=== PATIENT | female | born 1960 | race Caucasian/White ===

== ENCOUNTER 2016-10-22 10:25 | Emergency (ER) | payer OTHER ==
[~2016-10-22] VITALS: Ht 172.7 cm; Wt 78.7 kg
[~2016-10-22 10:25] MED LIST: ALEVE220 MG PO; ASPIRIN EC325 MG PO; ASPIRIN325 MG PO; COREG12.5 M1 PO; COREG25 M1 PO; COREG6.25 M1 PO; Coreg PO; DIGOXIN250 MCG PO; Ecotrin PO; LASIX40 MG PO; LISINOPRIL10 MG PO; LISINOPRIL5 MG PO; Levothroid,Synthroid PO; MULTIVITAMIN1 EAC2 PO; SYNTHROID150 MCG PO; Theragran PO
[2016-10-22 11:03] LABS: BASOPHIL COUNT 0.1 K/uL (0-0.1); EOSINOPHIL (%) 0.9 % (0-5); EOSINOPHIL COUNT 0.1 K/uL (0-0.3); HEMATOCRIT 28.6 % (36.0-46.0); IMMATURE GRANULOCYTE (%) 0.2 % (0.0-0.7); IMMATURE GRANULOCYTE COUNT 0.2 K/uL; LYMPHOCYTE COUNT 0.9 K/uL (1.0-2.8); MCH 28.4 PG (29.0-34.0); MCHC 32.5 G/DL (30.0-36.0); MCV 87.5 FL (83-99); MONOCYTE (%) 14.4 % (3-12); MONOCYTE COUNT 1.6 K/uL (0-0.8); NEUTROPHIL (%) 76.1 % (45-76); NEUTROPHIL COUNT 8.4 K/uL (1.8-6.4); PLATELET COUNT 369 K/uL (156-360); RBC DIS.WIDTH-CV 15.5 % (11.8-14.6); RBC DIS.WIDTH-SD 48.2 % (39-53); RED BLOOD COUNT 3.27 M/uL (3.80-5.20); WHITE BLOOD COUNT 11.1 K/uL (4.1-10.2)
[2016-10-22 11:11] LABS: CHLORIDE 102 mEq/L (99-109); POTASSIUM 4.5 mEq/L (3.7-5.4); SODIUM 138 mEq/L (136-147)
[2016-10-22 11:13] LABS: GLUCOSE 108 mg/dL (70-99)
[2016-10-22 11:15] LABS: ANION GAP 9 MEQ/L (2-14)
[2016-10-22 11:17] LABS: GFR ESTIMATE (CALCULATED) > 59 mL/min/
[2016-10-22 11:18] LABS: UREA NITROGEN (BUN) 36 mg/dL (9-23)
[2016-10-22 11:33] LABS: INTER. NORMALIZED RATIO 4.4; PROTHROMBIN TIME 47.1 (9.2-11.2)
[2016-10-22 14:27] VITALS: BP 92/61
== END 2016-10-22 15:14 | disposition home or self-care (01) ==
LOC: EME 10:25
PROVIDERS: Physician Assistant
PROC: 2Y41X5Z Packing of Nasal Region using Packing Material (ICD-10-PCS; principal; 2016-10-22)
DX: R04.0 Epistaxis (principal); Z79.01 Long term (current) use of anticoagulants
CPT/HCPCS: 80048; 85025; 85610; 99281; 99284

== ENCOUNTER 2017-02-27 16:36 | Inpatient (IN) | payer OTHER ==
[~2017-02-27] VITALS: Ht 172.7 cm; Wt 75.0 kg
[2017-02-27 17:20] LABS: HEMATOCRIT 44.3 % (36.0-46.0); MCH 27.8 PG (29.0-34.0); MCHC 31.8 G/DL (30.0-36.0); MCV 87.4 FL (83-99); RBC DIS.WIDTH-CV 21.1 % (11.8-14.6); RBC DIS.WIDTH-SD 66.7 % (39-53); RED BLOOD COUNT 5.07 M/uL (3.80-5.20); WHITE BLOOD COUNT 10.4 K/uL (4.1-10.2)
[2017-02-27 17:42] LABS: CHLORIDE 100 mEq/L (99-109); POTASSIUM 4.9 mEq/L (3.7-5.4); SODIUM 141 mEq/L (136-147)
[2017-02-27 17:44] LABS: GLUCOSE 84 mg/dL (70-99)
[2017-02-27 17:45] LABS: ANION GAP 14 MEQ/L (2-14)
[2017-02-27 17:46] LABS: TOTAL BILIRUBIN 0.7 mg/dL (0.0-1.0)
[2017-02-27 17:47] LABS: ALKALINE PHOSPHATASE 321 IU/L (3-129)
[2017-02-27 17:48] LABS: GFR ESTIMATE (CALCULATED) 55 mL/min/
[2017-02-27 17:49] LABS: UREA NITROGEN (BUN) 31 mg/dL (9-23)
[2017-02-27 17:51] LABS: LIPASE 15 U/L (1.0-51.0)
[2017-02-27 18:30] LABS: MEAN PLAT.VOLUME 11.2 uM^3 (9.5-12.4); PLATELET COUNT 384 K/uL (156-360)
[2017-02-27 18:31] LABS: PLAT.SUFFICIENCY ADEQUATE
[2017-02-27 19:17] LABS: ADD MIUA? YES; BILIRUBIN NEGATIVE; BLOOD NEGATIVE; COLOR YELLOW ((YELLOW)); GLUCOSE (STRIP) NEGATIVE; KETONES 20; LEUKOCYTES NEGATIVE; NITRITE NEGATIVE; PROTEIN (STRIP) NEGATIVE; SPECIFIC GRAVITY 1.015 (1.000-1.030); UROBILINOGEN 0.2 MG/DL (0.2-1.0)
[2017-02-27 19:42] LABS: BACTERIA NONE SEEN /HPF; EPITHELIAL CELLS RARE /HPF; HYALINE CASTS 0-5 /LPF; MUCUS TRACE /LPF; RED BLOOD CELLS 0-5 /HPF (0-5); UCUL ADDED? NO; WHITE BLOOD CELLS 0-5 /HPF (0-5)
[2017-02-27] MEDS ORDERED: DIGOXIN125 MCG PO (20:54)
[2017-02-27] MEDS ORDERED: FUROSEMIDE40 MG PO (20:55)
[2017-02-27] MEDS ORDERED: SYNTHROID150 MCG PO (20:55)
[2017-02-27] MEDS ORDERED: LISINOPRIL5 MG PO (20:56)
[2017-02-27] MEDS ORDERED: VITAMIN D31000 UNI2 PO (20:56)
[2017-02-27] MEDS ORDERED: IRON325 M1 PO (20:56)
[2017-02-27] MEDS ORDERED: METOPROLOL TART25 MG PO ×2 (20:57)
[2017-02-27] MEDS ORDERED: WARFARIN SODIUM5 MG PO ×2 (20:58)
[2017-02-27 21:23] LABS: ANISOCYTOSIS 2+; BURR CELLS 1+; MICROCYTOSIS 1+; SCHISTOCYTES 1+; TARGET CELLS 2+; TEAR DROP CELLS 1+
[2017-02-27 22:45] VITALS: BP 94/60
[2017-02-27] MEDS ORDERED: ASPIR-LOW81 MG PO (23:42)
[2017-02-28 00:04] LABS: INTER. NORMALIZED RATIO 1.7
[2017-02-28 03:23] VITALS: BP 82/51
[2017-02-28 07:10] VITALS: BP 91/55
[2017-02-28 07:29] LABS: HEMATOCRIT 37.9 % (36.0-46.0); MCH 28.4 PG (29.0-34.0); MCHC 31.4 G/DL (30.0-36.0); MCV 90.5 FL (83-99); MEAN PLAT.VOLUME 11.8 uM^3 (9.5-12.4); PLATELET COUNT 377 K/uL (156-360); RBC DIS.WIDTH-CV 21.2 % (11.8-14.6); RED BLOOD COUNT 4.19 M/uL (3.80-5.20); WHITE BLOOD COUNT 5.6 K/uL (4.1-10.2)
[2017-02-28 07:46] LABS: INTER. NORMALIZED RATIO 1.7; PROTHROMBIN TIME 17.8 (9.2-11.2)
[2017-02-28 07:48] LABS: ANION GAP 6 MEQ/L (2-14); CHLORIDE 104 MEQ/L (99-109); GFR ESTIMATE (CALCULATED) > 59 mL/min/; POTASSIUM 4.6 MEQ/L (3.7-5.4); SAMPLE HEMOLYSIS CHECK 0; SAMPLE ICTERIC CHECK 0; SAMPLE LIPEMIA CHECK 0; SODIUM 140 MEQ/L (136-147); UREA NITROGEN (BUN) 27 mg/dL (9-23)
[2017-02-28 07:52] LABS: GLUCOSE 111 mg/dL (70-99)
[2017-02-28 11:20] VITALS: BP 106/63
[2017-02-28 16:32] VITALS: BP 105/69
[2017-02-28 19:09] VITALS: BP 109/68
[2017-02-28 23:11] VITALS: BP 99/65
[2017-03-01 02:58] VITALS: BP 103/72
[2017-03-01 07:30] LABS: INTER. NORMALIZED RATIO 2.3; PROTHROMBIN TIME 23.8 (9.2-11.2)
[2017-03-01 08:10] VITALS: BP 100/67
[2017-03-01 11:50] VITALS: BP 111/68
[2017-03-01 16:55] VITALS: BP 124/77
[2017-03-01 23:47] VITALS: BP 127/61
[2017-03-02 03:47] VITALS: BP 122/65
[2017-03-02 06:50] LABS: HEMATOCRIT 37.6 % (36.0-46.0); MCH 27.8 PG (29.0-34.0); MCHC 30.6 G/DL (30.0-36.0); MCV 90.8 FL (83-99); MEAN PLAT.VOLUME 11.6 uM^3 (9.5-12.4); PLATELET COUNT 362 K/uL (156-360); RBC DIS.WIDTH-CV 20.7 % (11.8-14.6); RED BLOOD COUNT 4.14 M/uL (3.80-5.20); WHITE BLOOD COUNT 5.5 K/uL (4.1-10.2)
[2017-03-02 06:56] LABS: INTER. NORMALIZED RATIO 3.2
[2017-03-02 07:05] LABS: BASOPHIL COUNT 0.1 K/uL (0-0.1); EOSINOPHIL (%) 5.3 % (0-5); EOSINOPHIL COUNT 0.3 K/uL (0-0.3); IMMATURE GRANULOCYTE (%) 0.2 % (0.0-0.7); INSTRUMENT ABS NEUTROPHIL CT 3.5 K/uL; LYMPHOCYTE COUNT 0.6 K/uL (1.0-2.8); MONOCYTE (%) 20.3 % (3-12); MONOCYTE COUNT 1.1 K/uL (0-0.8); NEUTROPHIL COUNT 3.5 K/uL (1.8-6.4)
[2017-03-02 07:15] VITALS: BP 117/68
[2017-03-02 07:31] LABS: ANION GAP 6 MEQ/L (2-14); CHLORIDE 104 MEQ/L (99-109); GFR ESTIMATE (CALCULATED) > 59 mL/min/; GLUCOSE 102 mg/dL (70-99); SAMPLE HEMOLYSIS CHECK 0; SAMPLE ICTERIC CHECK 0; SAMPLE LIPEMIA CHECK 0; SODIUM 137 MEQ/L (136-147); UREA NITROGEN (BUN) 11 mg/dL (9-23)
[2017-03-02 16:23] VITALS: BP 111/76
[2017-03-03 00:26] VITALS: BP 133/76
[2017-03-03 07:00] VITALS: BP 103/71
[2017-03-03 07:28] LABS: INTER. NORMALIZED RATIO 3.8; PROTHROMBIN TIME 40.3 (9.2-11.2)
[2017-03-03 08:17] VITALS: BP 124/81
[2017-03-03 16:14] VITALS: BP 122/78
[2017-03-04 07:03] LABS: HEMATOCRIT 37.7 % (36.0-46.0); MCH 27.6 PG (29.0-34.0); MCHC 31.3 G/DL (30.0-36.0); MCV 88.3 FL (83-99); RBC DIS.WIDTH-CV 20.3 % (11.8-14.6); RBC DIS.WIDTH-SD 65.7 % (39-53); RED BLOOD COUNT 4.27 M/uL (3.80-5.20); WHITE BLOOD COUNT 5.6 K/uL (4.1-10.2)
[2017-03-04 07:15] VITALS: BP 118/57
[2017-03-04 07:23] LABS: INTER. NORMALIZED RATIO 2.8; PROTHROMBIN TIME 29.3 (9.2-11.2)
[2017-03-04 07:32] LABS: ANION GAP 8 MEQ/L (2-14); CHLORIDE 99 MEQ/L (99-109); GFR ESTIMATE (CALCULATED) > 59 mL/min/; GLUCOSE 86 mg/dL (70-99); MAGNESIUM 1.5 mg/dl (1.3-2.7); POTASSIUM 4.1 MEQ/L (3.7-5.4); SAMPLE HEMOLYSIS CHECK 0; SAMPLE ICTERIC CHECK 0; SAMPLE LIPEMIA CHECK 0; SODIUM 135 MEQ/L (136-147); UREA NITROGEN (BUN) 8 mg/dL (9-23)
[2017-03-04 08:12] LABS: MEAN PLAT.VOLUME 11.6 uM^3 (9.5-12.4); PLAT.SUFFICIENCY INCREASED; PLATELET COUNT 368 K/uL (156-360)
[2017-03-04 15:44] VITALS: BP 111/74
[2017-03-05 00:58] VITALS: BP 104/66
[2017-03-05 05:52] LABS: INTER. NORMALIZED RATIO 1.9; PROTHROMBIN TIME 19.2 (9.2-11.2)
[2017-03-05 05:56] LABS: ANION GAP 7 MEQ/L (2-14); CHLORIDE 99 MEQ/L (99-109); GFR ESTIMATE (CALCULATED) > 59 mL/min/; GLUCOSE 91 mg/dL (70-99); POTASSIUM 3.8 MEQ/L (3.7-5.4); SAMPLE HEMOLYSIS CHECK 0; SAMPLE ICTERIC CHECK 0; SAMPLE LIPEMIA CHECK 0; SODIUM 138 MEQ/L (136-147); UREA NITROGEN (BUN) 10 mg/dL (9-23)
[2017-03-05 08:32] VITALS: BP 100/68
[2017-03-05 16:32] VITALS: BP 126/84
[2017-03-06] VITALS (13 sets, daily range): BP systolic 74–116; BP diastolic 49–70
[2017-03-06 07:16] LABS: INTER. NORMALIZED RATIO 1.4
[2017-03-06 10:06] LABS: TYPE OF FLUID THORACENTESIS
[2017-03-06 10:28] LABS: GLUCOSE 89 mg/dL (70-99); LACTATE DEHYDROGENASE 168 IU/L (20-246)
[2017-03-06 11:01] LABS: BODY FLUID EOSINOPHILS 0 % (0-25); BODY FLUID RBC'S < 1000 /MM^3 (0-100); BODY FLUID WBC'S 58 /MM^3 (0-500); MONONUCLEAR WBC'S 98 %; POLYNUCLEAR WBC'S 2 % (0-25)
[2017-03-06 11:21] LABS: BODY FLUID LDH 78 IU/L
[2017-03-06 11:23] LABS: BODY FLUID PROTEIN < 3 G/DL
[2017-03-07 07:35] VITALS: BP 92/61
[2017-03-07 07:55] LABS: INTER. NORMALIZED RATIO 1.2; PROTHROMBIN TIME 12.7 (9.2-11.2)
[2017-03-07 11:01] VITALS: BP 87/57
[2017-03-07] MEDS ORDERED: LISINOPRIL2.5 MG PO (11:42)
[2017-03-07] MEDS ORDERED: METOPROLOL TART25 MG PO (11:42)
== END 2017-03-07 13:47 | disposition home or self-care (01) | DRG 389 ==
LOC: EME 16:36 → EDOF 21:51 → 2EASTP 21:51
PROVIDERS: Internal Medicine; Physician Assistant Medical; Radiology Diagnostic Radiology
PROC: 0W9B3ZX Drainage of Left Pleural Cavity, Percutaneous Approach, Diagnostic (ICD-10-PCS; principal; 2017-03-06)
DX: K56.60 Unspecified intestinal obstruction (principal); J90 Pleural effusion, not elsewhere classified; I50.22 Chronic systolic (congestive) heart failure; I31.3 Pericardial effusion (noninflammatory); I08.3 Combined rheumatic disorders of mitral, aortic and tricuspid valves; I44.1 Atrioventricular block, second degree; I48.91 Unspecified atrial fibrillation; I42.9 Cardiomyopathy, unspecified; N28.1 Cyst of kidney, acquired; I95.9 Hypotension, unspecified; I13.0 Hypertensive heart and chronic kidney disease with heart failure and stage 1 through stage 4 chronic kidney disease, or unspecified chronic kidney disease; I27.2 Other secondary pulmonary hypertension; Z79.01 Long term (current) use of anticoagulants; E78.5 Hyperlipidemia, unspecified; N18.3 Chronic kidney disease, stage 3 (moderate); J98.11 Atelectasis; E03.9 Hypothyroidism, unspecified; K21.9 Gastro-esophageal reflux disease without esophagitis; E86.0 Dehydration; Z92.21 Personal history of antineoplastic chemotherapy; Z95.0 Presence of cardiac pacemaker; Z79.82 Long term (current) use of aspirin; Z95.2 Presence of prosthetic heart valve; Z85.71 Personal history of Hodgkin lymphoma; Z86.010 Personal history of colon polyps; Z90.81 Acquired absence of spleen
CPT/HCPCS: 71010; 71030; 71250; 74020; 74177; 80048; 80053; 81003; 82945; 82947; 83615; 83615 91; 83690; 83735; 83880; 84155; 84157; 85025; 85025 GA; 85027; 85610; 87070; 87075; 87116; 87205; 87206; 88108; 89051; 99281; 99284; G0378; J1160; J1940; J2405; J3010; J7040; J7042; S0028

== ENCOUNTER → 2018-05-06 | Outpatient (CLI) | payer OTHER ==
[~2018-05-06] MED LIST changes: +ASPIR-LOW81 MG PO; +DIGOXIN125 MCG PO; +FUROSEMIDE40 MG PO; +IRON325 M1 PO; +LISINOPRIL2.5 MG PO; +METOPROLOL TART25 MG PO; +VITAMIN D31000 UNI2 PO; +WARFARIN SODIUM5 MG PO
[2018-05-06 12:46] LABS: TYPE OF FLUID PLEURAL
[2018-05-06 13:11] LABS: APPEARANCE YELLOW-HAZY; BODY FLUID RBC'S 2000 /MM^3 (0-100); BODY FLUID WBC'S 707 /MM^3 (0-500)
[2018-05-06 13:18] LABS: BODY FLUID LDH 67 IU/L
[2018-05-06 13:27] LABS: BODY FLUID PROTEIN 1.3 G/DL
[2018-05-06 13:50] LABS: BODY FLUID EOSINOPHILS 0 % (0-25); MONONUCLEAR WBC'S 74 %; POLYNUCLEAR WBC'S 26 % (0-25)
== END | disposition home or self-care (01) ==
LOC: RAD 10:54 → EDSTATUS 11:00
PROVIDERS: Internal Medicine
PROC: 0W9B3ZZ Drainage of Left Pleural Cavity, Percutaneous Approach (ICD-10-PCS; principal; 2018-05-06)
DX: J90 Pleural effusion, not elsewhere classified (principal)
CPT/HCPCS: 76942; 83615 91; 83986 90; 84157; 88108; 88305; 89051